=== PATIENT | male | born 1940 | race Caucasian/White ===

== ENCOUNTER → 2017-03-17 | Outpatient (CLI) | payer MEDICARE, BC | LOC: BHSO 08:44 | DX: F41.1 Generalized anxiety disorder (principal) ==

== ENCOUNTER → 2017-05-04 | Outpatient (CLI) | payer MEDICARE, BC | LOC: BHSO 10:59 | DX: F41.1 Generalized anxiety disorder (principal) | CPT/HCPCS: G0463 ==

== ENCOUNTER → 2017-08-03 | Outpatient (CLI) | payer MEDICARE, BC | LOC: BHSO 12:58 | DX: F41.1 Generalized anxiety disorder (principal) | CPT/HCPCS: G0463 ==

== ENCOUNTER → 2018-11-15 | Outpatient (CLI) | payer MEDICARE, BC | LOC: BHSO 08:19 | DX: F41.1 Generalized anxiety disorder (principal) | CPT/HCPCS: G0463 ==

== ENCOUNTER → 2019-05-16 | Outpatient (CLI) | payer MEDICARE, BC | LOC: BHSO 09:52 | DX: F41.1 Generalized anxiety disorder (principal) | CPT/HCPCS: G0463 ==

== ENCOUNTER 2021-08-10 12:53 | Outpatient (RCR) | payer MEDICARE, BC ==
[~2021-08-10 12:53] MED LIST: CYMBALTA 30MG30 MG PO; INDERAL 10MG10 MG PO; KLONOPIN 1MG1 MG PO; PRESERVISION1 SGL PO; RESTORIL30 MG; TYLENOL PM EXTR1 TA1 PO
== END 2021-08-15 | disposition home or self-care (01) ==
LOC: WSST
DX: R13.10 Dysphagia, unspecified (principal)

== ENCOUNTER → 2021-08-18 | Outpatient (CLI) | payer MEDICARE, BC ==
[2021-08-18 14:47] LABS: HEMATOCRIT 40.9 % (42.0-52.0); HEMOGLOBIN 13.9 g/dl (13.5-18.0); MEAN CELL VOLUME 94 fl (80.0-100.0); MEAN CORPUSCULAR HEMOGLOBIN 32 pg (27-31); MEAN CORPUSCULAR HGB CONC 34 g/dl (33.0-37.0); MEAN PLATELET VOLUME 9.9 fl (7.4-10.4); PLATELET COUNT 205 K/mm3 (130-400); RED BLOOD COUNT 4.37 M/mm3 (4.20-5.60)
[2021-08-18 15:24] LABS: BAND 3 % (0-10); EOSINOPHIL 6 % (0-4); LYMPHOCYTE 17 % (20.0-51.0); NEUTROPHILS 61 % (42.0-75.2); PLATELET ESTIMATE NORMAL (NORMAL)
== END ==
LOC: COL.LAB 13:15
PROVIDERS: Internal Medicine Pulmonary Disease
DX: J47.9 Bronchiectasis, uncomplicated (principal)

== ENCOUNTER → 2021-08-18 | Outpatient (CLI) | payer MEDICARE, BC | LOC: COL.RAD 15:20 | DX: J18.9 Pneumonia, unspecified organism (principal) ==

== ENCOUNTER 2021-08-28 07:24 | Day surgery (SDC) | payer MEDICARE, BC ==
[~2021-08-28] VITALS: Ht 177.8 cm; Wt 87.2 kg
[2021-08-28 09:16] VITALS: BP 155/88; PULSE 62; TEMP 97.9
[2021-08-28 09:40] VITALS: BP 122/75; PULSE 60; TEMP 97.3
[2021-08-28 09:45] VITALS: BP 128/65; PULSE 63
[2021-08-28 10:00] VITALS: BP 131/78; PULSE 60
[2021-08-28 10:10] VITALS: BP 105/87; PULSE 57
--- NOTE | 2021-08-28 10:24 | NUR ---
0940 Pt returns from endo procedure via cart and RN assist to [facility] [facility]. Pt Monitors on and alarms set. Call light within reach. This RN assumes care of pt. Pt alert and oriented. Pt requests muffin and water. Pt denies any pain or nausea. 0950 Pt taking food and drink well. No complications noted. 1015 Discharge instructions given to pt and pt's . All questions answered to their satisfaction. Handed to pt are a thank you card and discharge information. 1024 Pt transferred out of the hospital via wheelchair and this RN assist, to private vehicle driven by pt's .
== END 2021-08-28 10:24 | disposition home or self-care (01) ==
LOC: SDCO 07:24
DX: J84.9 Interstitial pulmonary disease, unspecified (principal); J47.9 Bronchiectasis, uncomplicated; R05.9 Cough, unspecified; R09.89 Other specified symptoms and signs involving the circulatory and respiratory systems
CPT/HCPCS: J2704; J7120

== ENCOUNTER 2022-09-15 10:08 | Emergency (ER) | payer MEDICARE, BC ==
[~2022-09-15] VITALS: Ht 177.8 cm; Wt 84.1 kg
[2022-09-15 10:18] VITALS: TEMP 97.6
[2022-09-15] MEDS ORDERED: OFEV150 MG PO (10:27)
[2022-09-15 11:21] LABS: BASO # 0.1 K/mm3 (0.0-0.2); BASO % 0.5 % (0.0-2.0); EOS # 0.3 K/mm3 (0.0-0.7); EOS % 2.2 % (0.0-4.0); GRAN % 76.7 % (42.2-75.2); LYMPH # 1.2 K/mm3 (1.2-3.4); MEAN CELL VOLUME 89 fl (80.0-100.0); MEAN CORPUSCULAR HEMOGLOBIN 30 pg (27-31); MEAN CORPUSCULAR HGB CONC 34 g/dl (33.0-37.0); MEAN PLATELET VOLUME 8.6 fl (7.4-10.4); MONO # 1.5 K/mm3 (0.1-0.6); MONO % 11.1 % (1.7-9.3); PLATELET COUNT 370 K/mm3 (130-400); RED BLOOD COUNT 3.65 M/mm3 (4.20-5.60); REDCELL DISTRIBUTION WIDTH-CV 12.4 % (11.5-14.5)
[2022-09-15 11:23] LABS: HEMATOCRIT 32.6 % (42.0-52.0)
[2022-09-15 11:28] LABS: ALBUMIN 2.8 gm/dL (3.4-4.8); BILIRUBIN,TOTAL 0.5 mg/dL (0.2-1.2); CREATININE, serum 0.81 mg/dL (0.72-1.25); POTASSIUM 4.4 mmol/L (3.5-4.5); TOTAL PROTEIN 6.3 gm/dL (6.2-8.1)
[2022-09-15 12:15] LABS: COLLECTION METHOD CLEAN CATCH
[2022-09-15 12:28] LABS: SQUAMOUS EPITHELIAL None Seen /hpf (0-10); URINE BACTERIA None Seen /hpf (NONE SEEN); URINE RBC 0-2 /hpf (0-2)
[2022-09-15 12:54] LABS: URINE APPEARANCE Clear (CLEAR/HAZY); URINE BLOOD Negative (NEGATIVE); URINE COLOR Yellow (YELLOW); URINE GLUCOSE Negative (NEGATIVE); URINE KETONE Negative (NEGATIVE); URINE NITRATE Negative (NEGATIVE); URINE PROTEIN(semi-quant) Negative (NEGATIVE); URINE UROBILINOGEN 0.2 E.U/dL (0.2-1.0)
[2022-09-15 13:45] VITALS: BP 156/88; PULSE 65
== END 2022-09-15 13:45 | disposition home or self-care (01) ==
LOC: COL.ER 10:08
PROVIDERS: Physician Assistant
DX: R53.82 Chronic fatigue, unspecified (principal); R53.1 Weakness; E87.1 Hypo-osmolality and hyponatremia; F32.A Depression, unspecified; Z86.16 Personal history of COVID-19; Z79.899 Other long term (current) drug therapy